=== PATIENT | male | born 2000 | race Two or more races ===

== ENCOUNTER 2020-04-12 13:41 | Emergency (ER) | payer OTHER ==
[~2020-04-12] VITALS: Ht 170.2 cm; Wt 68.2 kg
[2020-04-12 14:21] LABS: COVID AG,FIA SOURCE NASOPHARYNGEAL
[2020-04-12 15:00] VITALS: BP 119/68
== END 2020-04-12 15:10 | disposition home or self-care (01) ==
LOC: EMS 13:43
DX: J40 Bronchitis, not specified as acute or chronic (principal); Z20.828 Contact with and (suspected) exposure to other viral communicable diseases
CPT/HCPCS: 87426